=== PATIENT | female | born 1960 | race Caucasian/White ===

== ENCOUNTER 2018-01-01 07:40 | Day surgery (SDC) | payer BC ==
[~2018-01-01 07:40] MED LIST: DEXAMETHASONE 4 MG/ML 1 ML INJ; LIDOCAINE 2% (SDV) 5 ML INJ; ONDANSETRON 4 MG INJ
[2018-01-01] MEDS ORDERED: CEFAZOLIN 1 GM/50 ML (PMX) 50 ML IVPB (09:00)
[2018-01-01] MEDS ORDERED: SOD CHLORIDE 0.9% 1,000 ML IV (09:00)
[2018-01-01] MEDS ORDERED: ONDANSETRON 4 MG INJ IV ×2 (11:00→12:30)
[2018-01-01] MEDS ORDERED: HYDROmorphONE 1 MG/5 ML IV SYRINGE IV ×3 (11:00)
[2018-01-01] MEDS ORDERED: MIDAZOLAM 1 MG/ML 2 ML INJ IV (11:00)
[2018-01-01] MEDS ORDERED: METOCLOPRAMIDE 10 MG INJ IV (11:00)
[2018-01-01] MEDS ORDERED: OXYCODONE/ACETAMINOPHEN (5/325) TAB PO ×2 (11:00)
[2018-01-01] MEDS ORDERED: FENTAnyl 50 MCG/ML VIAL IV ×3 (11:00)
[2018-01-01] MEDS ORDERED: hydrALAzine 20 MG INJ IV (11:00)
[2018-01-01] MEDS ORDERED: LABETALOL HCL 20MG INJ IV (11:00)
[2018-01-01] MEDS ORDERED: ALBUTEROL 0.083% (NEB) 2.5 MG/3 ML AMP HHN (11:00)
[2018-01-01] MEDS ORDERED: DIPHENHYDRAMINE 50 MG INJ IV (11:00)
[2018-01-01] MEDS ORDERED: MEPERIDINE 25 MG INJ IV (11:00)
[2018-01-01] MEDS ORDERED: BUPIVACAINE 0.5%/EPI (SDV) 30 ML INJ (11:02)
[2018-01-01] MEDS ORDERED: LIDOCAINE 1%/EPI 30 ML INJ (11:09)
[2018-01-01] MEDS ORDERED: BUPIVACAINE 0.25% (MPF) 30 ML INJ (11:09)
[2018-01-01] MEDS ORDERED: FENTAnyl 50 MCG/ML VIAL (11:10)
[2018-01-01] MEDS ORDERED: CEFAZOLIN 1 GM INJ (11:41)
[2018-01-01] MEDS ORDERED: PROPOFOL 100 ML (11:41)
[2018-01-01] MEDS: BUPIVACAINE 0.5%/EPI (SDV) 30 ML INJ (11:49)
[2018-01-01] MEDS: BACITRACIN 0.9 GM OINT ×2 (11:58→13:26)
[2018-01-01] MEDS: EPHEDrine SULFATE 50 MG/5 ML SYG IV (12:27)
[2018-01-01] MEDS ORDERED: IBUPROFEN 600 MG TAB PO (12:30)
== END 2018-01-01 13:20 | disposition home or self-care (01) ==
LOC: SDS 07:40
DX: L72.11 Pilar cyst (principal); I10 Essential (primary) hypertension
CPT/HCPCS: 11423; 88307